=== PATIENT | female | born 1995 | race Caucasian/White ===

== ENCOUNTER 2020-04-14 06:54 | Day surgery (SDC) | payer BC ==
[2020-04-14] MEDS ORDERED: Lidocaine 1%/Sod Bicarbonate in NS 8.4% 1 ML Syringe IDERM PRN (07:00)
[2020-04-14] MEDS ORDERED: Sodium Chloride 0.9% 10 ML Syringe FLUSH PRN (07:00)
[2020-04-14] MEDS ORDERED: Lactated Ringers 1,000 ML IV SCH (07:00)
[2020-04-14] MEDS ORDERED: Lidocaine 1% 4 ML ONE (07:02)
[2020-04-14] MEDS ORDERED: Propofol 200 MG/20 ML SDV ONE ×3 (07:02→11:36)
[2020-04-14] MEDS ORDERED: Midazolam 1 MG/ML 2 ML SDV ONE (07:03)
[2020-04-14] MEDS ORDERED: fentaNYL 250 MCG/5 ML SDV ONE (07:03)
[2020-04-14] MEDS ORDERED: Rocuronium 50 MG/5 ML Vial ONE (07:03)
[2020-04-14] MEDS ORDERED: Lidocaine 1% with EPINEPHrine 1:100,000 20 ML MDV ONE (07:10)
[2020-04-14] MEDS ORDERED: Bupivacaine 0.5%/EPINEPHrine 1:200,000 50 ML MDV ONE (07:11)
[2020-04-14] MEDS ORDERED: ceFAZolin 1 GM Vial ONE (07:13)
--- NOTE | 2020-04-14 07:22 | PCM.PREANE ---
Preanesthetic Assessment - Anesthesia/Transfusion/Family Hx Anesthesia History: Prior Anesthesia Without Reaction Family History of Anesthesia Reaction: No Transfusion History: No Prior Transfusion(s) - Review of Systems General: No Symptoms Pulmonary: No Symptoms Cardiovascular: No Symptoms Gastrointestinal: No Symptoms Neurological: No Symptoms Other: Reports: None - Physical Assessment NPO Status Date: 04/13/20 NPO Status Time: 22:00 ASA Class: 2 Mental Status: Alert & Oriented x3 Airway Class: Mallampati = 1 Thyro-Mental Finger Breadths: 3 Mouth Opening Finger Breadths: 3 ROM/Head Extension: Full Lungs: Clear to Auscultation, Normal Respiratory Effort Cardiovascular: Regular Rate, Regular Rhythm - Allergies Allergies/Adverse Reactions: Allergies Allergy/AdvReac Type Severity Reaction Status Date / Time No Known Allergies Allergy Verified 04/13/20 13:28 - Acknowledgements Anesthesia Type Planned: General Anesthesia Pt an Appropriate Candidate for the Planned Anesthesia: Yes Alternatives and Risks of Anesthesia Discussed w Pt/Guardian: Yes Pt/Guardian Understands and Agrees with Anesthesia Plan: Yes PreAnesthesia Questionnaire HEENT History: Reports: Impaired Vision, Other (See Below) Other HEENT History: wears glasses Cardiovascular History: Reports: SOB on Exertion Respiratory History: Reports: SOB Gastrointestinal History: Reports: None Genitourinary History: Reports: None 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 Musculoskeletal History: Reports: None Neurological History: Reports: Migraines Psychiatric History: Reports: Anxiety Endocrine/Metabolic History: Reports: None Hematologic History: Reports: None Immunologic History: Reports: None Oncologic (Cancer) History: Reports: None Dermatologic History: Reports: None - Infectious Disease History Infectious Disease History: Reports: None - Past Surgical History Head Surgeries/Procedures: Reports: None Cardiovascular Surgical History: Reports: None Respiratory Surgical History: Reports: None GI Surgical History: Reports: Cholecystectomy, Hernia Repair/Other Female Surgical History: Reports: Tubal Ligation Male Surgical History: Reports: None Endocrine Surgical History: Reports: None Neurological Surgical History: Reports: None Musculoskeletal Surgical History: Reports: None Oncologic Surgical History: Reports: None Dermatological Surgical History: Reports: None - SUBSTANCE USE Tobacco Use Status *Q: Current Every Day Tobacco User Recreational Drug Use History: No - HOME MEDS Home Medications: Home Meds Ondansetron [Zofran] 4 mg PO Q4H PRN 04/13/20 [History] - CURRENT (IN HOUSE) MEDS Current Meds: Current Medications Lactated Ringer's (Ringers, Lactated) 1,000 mls @ 125 mls/hr IV ASDIRECTED JULIET Stop: 04/14/20 23:00 Lidocaine/Sodium Bicarbonate (Buffered Lidocaine 1% In Ns 8.4%) 0.25 ml IDERM ONETIME PRN PRN Reason: Prior to IV Start Stop: 04/14/20 18:00 Sodium Chloride (Saline Flush) 10 ml FLUSH ASDIRECTED PRN PRN Reason: Keep Vein Open Stop: 04/14/20 18:00 Discontinued Medications Bupivacaine HCl/Epinephrine Bitart (Marcaine 0.5%/Epinephrine 1:200,000) Confirm Administered Dose 50 ml .ROUTE .STK-MED ONE Stop: 04/14/20 07:12 Fentanyl (Sublimaze) Confirm Administered Dose 250 mcg .ROUTE .STK-MED ONE Stop: 04/14/20 07:04 Lidocaine HCl (Xylocaine-Mpf 1%) Confirm Administered Dose 4 mls @ as directed .ROUTE .STK-MED ONE Stop: 04/14/20 07:03 Lidocaine/Epinephrine (Xylocaine 1% With Epinephrine 1:100,000) Confirm Administered Dose 40 ml .ROUTE .STK-MED ONE Stop: 04/14/20 07:11 Midazolam HCl (Versed 1 Mg/Ml) Confirm Administered Dose 2 mg .ROUTE .STK-MED ONE Stop: 04/14/20 07:04 Propofol (Diprivan 20 Ml) Confirm Administered Dose 200 mg .ROUTE .STK-MED ONE Stop: 04/14/20 07:03 Rocuronium [place] (Zemuron) Confirm Administered Dose 50 mg .ROUTE .STK-MED ONE Stop: 04/14/20 07:04
[2020-04-14] MEDS ORDERED: Ondansetron 4 MG/2 ML SDV ONE ×2 (11:16→13:01)
[2020-04-14] MEDS ORDERED: Dexamethasone 4 MG/ML 5 ML MDV ONE (11:16)
[2020-04-14] MEDS ORDERED: HYDROmorphone 0.5 MG/0.5 ML Syringe ONE ×2 (11:18→11:36)
[2020-04-14] MEDS ORDERED: Lactated Ringers 1,000 ML ONE (11:32)
[2020-04-14] MEDS ORDERED: Ketamine 500 mg/10 ML MDV ONE (11:36)
[2020-04-14] MEDS ORDERED: fentaNYL 100 MCG/2 ML SDV ONE ×2 (12:09→12:19)
[2020-04-14] MEDS ORDERED: HYDROmorphone 0.5 MG/0.5 ML Syringe IM ONE (12:14)
[2020-04-14] MEDS ORDERED: fentaNYL 100 MCG/2 ML SDV IVPUSH PRN (12:14)
[2020-04-14] MEDS ORDERED: Ondansetron 4 MG/2 ML SDV IVPUSH PRN (12:14)
[2020-04-14] MEDS ORDERED: Ketorolac 30 MG/ML SDV ONE (13:02)
--- NOTE | 2020-04-14 13:36 | PCM.PRNOTE ---
- Free Text/Narrative Note: Operative Report Date of surgery: April 14, 2020 Procedure: laparoscopic recurrent umbilical (ventral) hernia repair with mesh Preoperative diagnosis: Recurrent umbilical hernia Postoperative diagnosis: same Surgeon: Dr. Nely Martinez Anesthesia: General ET Dry Cans Operator: Estelita Lion CRNA Estimated blood loss: 5 mL IV fluids: 1700 mL Urine output: none Drains and lines: none Indication for the procedure: The patient is a 24-year-old lady who presented to my office with complaint of continued abdominal pain after her recent umbilical hernia repair. The patient underwent preoperative investigation which indicated a recurrent umbilical hernia. I discussed a procedure of a laparoscopic recurrent umbilical (ventral) hernia repair with mesh with the patient. Risks of infection, bleeding and mesh complication was reviewed, and written consent was obtained Description of the procedure: The patient presented to the outpatient holding area on the day for procedure history and physical were verified and the consent was present and on the chart. She was taken back to the operating room and placed in supine position on the operating table. SCD boots were placed and functional prior to the service procedure. The patient received preoperative antibiotics as per SCIP protocol. The patient voided prior to entering the OR. The patient had successful induction of general anesthesia and was intubated without difficulty. The patient's left arm was tucked and the pressure points were padded. The patient was prepped and draped in standard surgical fashion and a timeout was performed. The abdomen was draped with Ioban to begin. A 5 mm incision was then made in the left upper quadrant just under the subcostal margin at her previous port site. A 5 mm port was then inserted into the abdomen with the Visiport technique. The abdomen was insufflated to 15 mmHg. There was no evid ence of any injury in the area where we had entered the abdomen. We proceeded to place a TAP block of mixed 1% lidocaine with epinephrine and 0.5% bupivacaine with epinephrine we then proceeded to survey the area of hernia. There were adhesions visible to the abdominal wall over the previously placed mesh. A 5 mm port was inserted in the left lower quadrant. An additional 15 mm port was placed in the right abdomen. A LigaSure was then used to take down the adhesions to the abdominal wall. There were very thick adhesions in the superior aspect of the previous hernia repair mesh were the recurrence had been previously seen on imaging. We then proceeded to remove the mesh from the abdominal wall using the LigaSure and blunt dissection. The mesh was then removed from the abdomen through the 15 mm port. Once this was completed, we then used a spinal needle to size the new hernia defect. In order to cover the area where the abdominal wall was weakened due to the removal of the mesh, a 20.5cm x 15cm oval, double-sided mesh was selected. Vernon-Juan suture were affixed in all 4 quadrants of the mesh. The mesh was then soaked in saline, rolled and placed through this port into the abdomen. The mesh was then unfurled within the abdomen and the fixation site was marked with the spinal needle. A small stab incision was made in the area where we had selected superiorly. An Endo Close suture passer was then passed into the abdomen and the tails of the Vernon-Juan suture were brought to the abdominal wall and secured. We then proceeded to do the same with the four remaining sutures in all four quadrants of the mesh. A SecureStrap Ethicon tacker was then used to circumferentially tack the to the abdominal wall. The mesh was well placed at the conclusion of tack placement and well covered the defects. The 15 mm port was then removed and an 0 Vicryl suture was used to close the fascial defect using the Endo Close device. The abdomen was then desufflated and the ports were removed. The stay sutures were tied down to the abdominal wall and the subcutaneous tissue was released as necessary for good closure. The incision sites were then closed with 4-0 Monocryl suture. Dermabond surgical glue were used to cover the port sites and stab incisions. The patient tolerated the procedure well and was transported to the PACU in stable condition. All sponge and needle counts correct. The Rodriguez catheter was removed at the conclusion of the case Complications: None apparent. Disposition: Stable to PACU Nely Martinez MD General Surgery
--- NOTE | 2020-04-14 13:36 | PCM.OPNOTE ---
- General Post-Op/Procedure Note Date of Surgery/Procedure: 04/14/20 Operative Procedure(s): Laparoscopic recurrent umbilical (ventral) hernia repair with mesh Findings: Umbilical mesh in place with detachment at superior aspect Pre Op Diagnosis: recurrent umbilical hernia Post-Op Diagnosis: same Anesthesia Technique: General ET Tube Primary Surgeon: Nely Martinez Anesthesia Provider: Estelita Lion Pathology: none Fluid Replacement, Intraop: 1,700 Output, Urine Amount: 0 EBL in mLs: 5 Complications: none apparent Condition: Good
--- NOTE | 2020-04-14 13:51 | PCM.POSTAN ---
POST ANESTHESIA ASSESSMENT - MENTAL STATUS Mental Status: Alert, Oriented - VITAL SIGNS Vital Signs: Last Vital Signs Temp 36.6 C 04/14/20 13:40 Pulse 79 04/14/20 07:15 Resp 12 04/14/20 13:40 BP 159/91 H 04/14/20 13:40 Pulse Ox 98 04/14/20 13:40 - RESPIRATORY Respiratory Status: Respiratory Rate WNL, Airway Patent, O2 Saturation Stable - CARDIOVASCULAR CV Status: Pulse Rate WNL, Blood Pressure Stable - GASTROINTESTINAL GI Status: No Symptoms - PAIN Pain Score: 0 - POST OP HYDRATION Hydration Status: Adequate & Stable
[2020-04-14] MEDS ORDERED: HYDROmorphone 0.5 MG/0.5 ML Syringe IVPUSH PRN (14:06)
[2020-04-14] MEDS ORDERED: Acetaminophen/HYDROcodone 325-5 MG Tab PO PRN (14:38)
--- NOTE | 2020-04-14 14:38 | PCM48HPAN ---
Post Anesthesia Note - EVALUATION WITHIN 48HRS OF ANESTHETIC Vital Signs in Normal Range: Yes Patient Participated in Evaluation: Yes Respiratory Function Stable: Yes Airway Patent: Yes Cardiovascular Function Stable: Yes Hydration Status Stable: Yes Pain Control Satisfactory: Yes Nausea and Vomiting Control Satisfactory: Yes Mental Status Recovered: Yes Vital Signs: Last Vital Signs Temp 36.6 C 04/14/20 13:40 Pulse 79 04/14/20 07:15 Resp 18 04/14/20 14:15 BP 153/93 H 04/14/20 14:15 Pulse Ox 97 04/14/20 14:16
== END 2020-04-14 15:10 | disposition home or self-care (01) ==
LOC: JD.SDS 06:54
PROVIDERS: ATTEND Surgery
DX: K42.9 Umbilical hernia without obstruction or gangrene (principal); F17.210 Nicotine dependence, cigarettes, uncomplicated; F41.9 Anxiety disorder, unspecified; Z01.812 Encounter for preprocedural laboratory examination; Z98.890 Other specified postprocedural states; Z20.828 Contact with and (suspected) exposure to other viral communicable diseases
CPT/HCPCS: 49652; A9270; C1781; J0690; J1100; J1170; J1885; J2001; J2250; J2405; J2704; J3010; J3490; J7120; 00790